=== PATIENT | female | born 1990 | race Caucasian/White ===

== ENCOUNTER 2020-03-31 18:34 | Emergency (ER) | payer SELFPAY ==
[2020-03-31] MEDS ORDERED: HYDROCODONE/APAP 10/325 TAB ONE (19:27)
--- NOTE | 2020-03-31 20:06 | RAD REPORT ---
EXAM DESCRIPTION: CT - CTHCSPWOC - 03/31/2020 7:49 pm CLINICAL HISTORY: Trauma, head and neck injury. PAIN COMPARISON: No comparisons TECHNIQUE: Axial 5 mm thick images of the head were obtained. Axial 2 mm thick images of the cervical spine were obtained with sagittal and coronal reconstruction images generated and reviewed. All CT scans are performed using dose optimization technique as appropriate and may include automated exposure control or mA/KV adjustment according to patient size. FINDINGS: CT HEAD WITHOUT CONTRAST: No acute hemorrhage, hydrocephalus or extra-axial collection is identified.No areas of brain edema or midline shift. The paranasal sinuses and mastoids are clear.The calvarium is intact. CT CERVICAL SPINE WITHOUT CONTRAST: No fracture or subluxation.No prevertebral soft tissues swelling is identified. IMPRESSION: No acute intracranial or cervical spine findings.
--- NOTE | 2020-03-31 20:22 | RAD REPORT ---
EXAM DESCRIPTION: RAD - Lumbar Spine 3 Views - 03/31/2020 8:03 pm CLINICAL HISTORY: PAIN Radiculopathy COMPARISON: No comparisons FINDINGS: Vertebral body heights appear maintained. No compression fracture noted. Disc spaces are m aintained. No spondylolysis or spondylolisthesis. IMPRESSION: Negative study.
[2020-03-31] MEDS ORDERED: DIAZEPAM 5 MG TABLET ONE (20:34)
--- NOTE | 2020-03-31 20:55 | EDPHYS ---
Physician Documentation [facility] Name: Cele Hastings Age: 29 yrs Sex: Female : 1990 Arrival Date: 03/31/2020 Time: 18:40 Bed 8 Private MD: ED Physician Nayan Moralez HPI: 03/31 19:06 This 29 yrs old Female presents to ER via EMS with complaints of Fall Injury. jmm 19:06 Details of fall: The patient fell from a height. Onset: The symptoms/episode jmm began/occurred acutely, just prior to arrival. Associated injuries: The patient sustained injury to the head, neck injury, injury to the low back. This is a 29 year old female with no chronic medical conditions that presents to the ED with lower back pain, neck pain after falling off her counter top and hitting the edge of a bathtub. Denies LOC. 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 - Social history:: Smoking status: Patient reports the use of cigarette tobacco products, smokes one-half pack cigarettes per day. ROS: 19:06 Constitutional: Negative for fever, chills, and weight loss, Cardiovascular: Negative jmm for chest pain, palpitations, and edema, Respiratory: Negative for shortness of breath, cough, wheezing, and pleuritic chest pain. 19:06 Back: Positive for pain with movement. 19:06 Neuro: Positive for headache. 19:06 All other systems are negative. Exam: 19:06 Constitutional: This is a well developed, well nourished patient who is awake, alert, jmm and in no acute distress. Head/Face: atraumatic. Eyes: EOMI, no conjunctival erythema appreciated ENT: Moist Mucus Membranes 19:06 Chest/axilla: Normal chest wall appearance and motion. Cardiovascular: Regular rate and rhythm. 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 19:06 Back: pain, that is mild, of the lumbar area. Vital Signs: 18:49 BP 123 / 78; Pulse 72; Resp 18; Temp 97.8; Pulse Ox 100% on R/A; Weight 83.91 kg; ph Height 5 ft. 1 in. (154.94 cm); Pain 7/10; 19:16 BP 115 / 80; Resp 18; Pulse Ox 100% on R/A; mg2 20:30 BP 120 / 80; Pulse 80; Resp 18; Temp 98; Pulse Ox 100% on R/A; mg2 18:49 Body Mass Index 34.96 (83.91 kg, 154.94 cm) ph [place] Coma Score: 18:49 Eye Response: spontaneous(4). Verbal Response: oriented(5). Motor Response: obeys ph commands(6). Total: 15. 20:30 Eye Response: spontaneous(4). Verbal Response: oriented(5). Motor Response: obeys mg2 commands(6). Total: 15. Trauma Score (Adult): 18:49 Eye Response: spontaneous(1); Verbal Response: oriented(1); Motor Response: obeys ph commands(2); Systolic BP: > 89 mm Hg(4); Respiratory Rate: 10 to 29 per min(4); [place] Score: 15; Trauma Score: 12 20:30 Eye Response: spontaneous(1); Verbal Response: oriented(1); Motor Response: obeys mg2 commands(2); Systolic BP: > 89 mm Hg(4); Respiratory Rate: 10 to 29 per min(4); [place] Score: 15; Trauma Score: 12 MDM: 18:52 Patient medically screened. pernell 20:26 Data reviewed: vital signs, nurses notes. Counseling: I had a detailed discussion with pernell the patient and/or guardian regarding: the historical points, exam findings, and any diagnostic results supporting the discharge/admit diagnosis, radiology results, the need for outpatient follow up, to return to the emergency department if symptoms worsen or persist or if there are any questions or concerns that arise at home. ED course: Patient is alert and non toxic in appearance in the ED. Imaging studies are negative. Patient is advised to follow up with pcp and otherwise given strict return precautions. Patient understood and agrees with the plan of care. . 03/31 19:02 Order name: CT Head C Spine; Complete Time: 20:10 jm 03/31 19:02 Order name: Lumbar Spine (3 Views) XRAY; Complete Time: 20:25 jm 03/31 20:33 Order name: Misc. Order: ambulate; Complete Time: 20:44 jm Administered Medications: 19:15 Drug: [place] 10 mg-325 mg 1 tabs Route: PO; mg2 20:30 Follow up: Response: No adverse reaction; RASS: Alert and Calm (0) mg2 20:21 Drug: Valium 5 mg Route: PO; mg2 21:10 Follow up: Response: No adverse reaction mg2 21:04 Drug: morphine 4 mg Route: IM; Site: right ventrogluteal; mg2 21:18 Follow up: Response: No adverse reaction; Medication administered at discharge. mg2 21:04 Drug: Decadron 10 mg Route: IM; Site: left ventrogluteal; mg2 21:18 Follow up: Response: No adverse reaction; Medication administered at discharge. mg2 Disposition: 04/01 14:35 Co-signature as Attending Physician, Nayan Moralez MD. rn Disposition: 03/31/20 20:54 Discharged to Home. Impression: Strain of muscle, fascia and tendon of lower back, Superficial injury of head. - Condition is Stable. - Discharge Instructions: Back Pain, Adult, Head Injury, Adult. - Prescriptions for Ultracet 37.5- 325 mg Oral Tablet - take 1 tablet by ORAL route every 6 hours - for up to 5 days; do not exceed 8 tablets per day.; 20 tablet. Zanaflex 4 mg Oral Tablet - take 1 tablet by ORAL route every 8 hours As needed; 20 tablet. - Medication Reconciliation Form, Thank You Letter, Antibiotic Education, Prescription Opioid Use form. - Follow up: Private Physician; When: 2 - 3 days; Reason: Recheck today's complaints, Continuance of care, Re-evaluation by your physician. Signatures: Dispatcher [employer] EDMS Joon Rapp PA PA [facility] Nayan Moralez MD MD rn Hall, Patricia, RN RN [place] RN RN jb4 [place], Mateo, RN RN mg2 Corrections: (The following items were deleted from the chart) 03/31 21:19 20:54 03/31/2020 20:54 Discharged to Home. Impression: Strain of muscle, fascia and jb4 tendon of lower back; Superficial injury of head. Condition is Stable. Forms are Medication Reconciliation Form, Thank You Letter, Antibiotic Education, Prescription Opioid Use. Follow up: Private Physician; When: 2 - 3 days; Reason: Recheck today's complaints, Continuance of care, Re-evaluation by your physician. pernell
--- NOTE | 2020-03-31 20:55 | ER ---
Nurse's Notes [facility] Name: Cele Hastings Age: 29 yrs Sex: Female : 1990 Arrival Date: 03/31/2020 Time: 18:40 Bed 8 Private MD: Diagnosis: Strain of muscle, fascia and tendon of lower back;Superficial injury of head Presentation: 03/31 18:41 Chief complaint: EMS states: Was sitting on bathroom counter "doing her eyebrows", fell ph backwards when someone knocked on the door, hit R hip on bathtub, also hit back of head and has abrasion to L forearm, denies LOC, c/o headache and R hip/low back pain. Care prior to arrival: Cervical collar in place. Mechanism of Injury: Fall bathroom counter. Trauma event details: Injury occurred in the [facility], Injury occurred: at home. Injury occurred: March 31, 2020. 18:41 Acuity: KELLEY 3 ph 18:41 Method Of Arrival: EMS: [facility] ph 18:51 Coronavirus screen: Client denies travel out of the [place] in the last 14 days. At this ph time, the client does not indicate any symptoms associated with coronavirus-19. Ebola Screen: No symptoms or risks identified at this time. Initial Sepsis Screen: Does the patient meet any 2 criteria? No. Patient's initial sepsis screen is negative. Does the patient have a suspected source of infection? No. Patient's initial sepsis screen is negative. Risk Assessment: Do you want to hurt yourself or someone else? Patient reports no desire to harm self or others. Onset of symptoms was March 31, 2020. 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 - Social history:: Smoking status: Patient reports the use of cigarette tobacco products, smokes one-half pack cigarettes per day. Screenin:49 Abuse screen: Denies threats or abuse. Denies injuries from another. Nutritional ph screening: On. Tuberculosis screening: No symptoms or risk factors identified. Fall Risk None identified. Primary Survey: 18:48 NO uncontrolled hemorrhage observed. A: The patient is alert. Airway: patent, No ph supplemental oxygen in use on arrival. Oral cavity: clear, Trachea midline. Breathing/Chest: Respiratory pattern: regular, Respiratory effort: spontaneous, unlabored, Chest inspection: symmetrical rise and fall of the chest. Circulation: Skin color: pink, Skin temperature: warm, dry. Disability Alert. Exposure/Environment: There is no evidence of uncontrolled external bleeding. Obvious injury(ies) are noted at this time: abrasion to L forearm, hematoma to back of head, R low back and hip pain. 21:00 Reassessment Airway Airway Patent Breathing/Chest Respiratory pattern Regular mg2 Respiratory effort Spontaneous Unlabored Circulation Color [place] Disability Alert. Secondary Survey: 18:49 HEENT: Head Other hematoma to back of head. Gastrointestinal: No deficits noted. ph Musculoskeletal: Circulation, motion, and sensation intact. Reports pain in right hip. Assessment: 19:16 General: Appears in no apparent distress. comfortable, Behavior is calm, cooperative. mg2 Pain: Complains of pain in lumbar area and pelvis and right hip. Neuro: Level of Consciousness is awake, alert, obeys commands, Oriented to person, place, time, situation. Cardiovascular: Capillary refill < 3 seconds Patient's skin is warm and dry. Respiratory: Airway is patent Respiratory effort is even, unlabored, Respiratory pattern is regular, symmetrical. GI: No signs and/or symptoms were reported involving the gastrointestinal system. : No signs and/or symptoms were reported regarding the genitourinary system. EENT: No signs and/or symptoms were reported regarding the EENT system. Derm: Skin is intact, is healthy with good turgor, Skin is pink, warm \\T\\ dry. normal. Musculoskeletal: Circulation, motion, and sensation intact. Capillary refill < 3 seconds, Reports pain in lumbar area and pelvis and right hip. 20:47 Reassessment: Patient appears in no apparent distress at this time. Patient and/or mg2 family updated on plan of care and expected duration. Pain level reassessed. Patient is alert, oriented x 3, equal unlabored respirations, skin warm/dry/pink. 21:18 Reassessment: Patient appears in no apparent distress at this time. Patient and/or jb4 family updated on plan of care and expected duration. Pain level reassessed. Patient is alert, oriented x 3, equal unlabored respirations, skin warm/dry/pink. Patient states feeling better. Vital Signs: 18:49 BP 123 / 78; Pulse 72; Resp 18; Temp 97.8; Pulse Ox 100% on R/A; Weight 83.91 kg; ph Height 5 ft. 1 in. (154.94 cm); Pain 7/10; 19:16 BP 115 / 80; Resp 18; Pulse Ox 100% on R/A; mg2 20:30 BP 120 / 80; Pulse 80; Resp 18; Temp 98; Pulse Ox 100% on R/A; mg2 18:49 Body Mass Index 34.96 (83.91 kg, 154.94 cm) ph [place] Coma Score: 18:49 Eye Response: spontaneous(4). Verbal Response: oriented(5). Motor Response: obeys ph commands(6). Total: 15. 20:30 Eye Response: spontaneous(4). Verbal Response: oriented(5). Motor Response: obeys mg2 commands(6). Total: 15. Trauma Score (Adult): 18:49 Eye Response: spontaneous(1); Verbal Response: oriented(1); Motor Response: obeys ph commands(2); Systolic BP: > 89 mm Hg(4); Respiratory Rate: 10 to 29 per min(4); Karen Score: 15; Trauma Score: 12 20:30 Eye Response: spontaneous(1); Verbal Response: oriented(1); Motor Response: obeys mg2 commands(2); Systolic BP: > 89 mm Hg(4); Respiratory Rate: 10 to 29 per min(4); [place] Score: 15; Trauma Score: 12 ED Course: 18:40 Patient arrived in ED. ph 18:46 Joon Rapp PA is PHCP. [facility] 18:46 Nayan Moralez MD is Attending Physician. [facility] 18:47 Triage completed. ph 18:51 Arm band placed on Patient placed in an exam room, on a stretcher. ph 18:52 Patient has correct armband on for positive identification. Placed in gown. Bed in low ph position. Call light in reach. Side rails up X 1. Pulse ox on. NIBP on. 18:52 Patient maintains SpO2 saturation greater than 95% on room air. ph 19:10 Mateo Cooper, RN is Primary Nurse. mg2 19:17 No provider procedures requiring assistance completed. Patient did not have IV access mg2 during this emergency room visit. 19:30 Thermoregulation: warm blanket given to patient. mg2 19:50 CT Head C Spine In Process Unspecified. EDMS 20:03 Lumbar Spine (3 Views) XRAY In Process Unspecified. EDMS Administered Medications: 19:15 Drug: [place] 10 mg-325 mg 1 tabs Route: PO; mg2 20:30 Follow up: Response: No adverse reaction; RASS: Alert and Calm (0) mg2 20:21 Drug: Valium 5 mg Route: PO; mg2 21:10 Follow up: Response: No adverse reaction mg2 21:04 Drug: morphine 4 mg Route: IM; Site: right ventrogluteal; mg2 21:18 Follow up: Response: No adverse reaction; Medication administered at discharge. mg2 21:04 Drug: Decadron 10 mg Route: IM; Site: left ventrogluteal; mg2 21:18 Follow up: Response: No adverse reaction; Medication administered at discharge. mg2 Intake: 21:00 PO: 0ml; Total: 0ml. mg2 Outcome: 20:54 Discharge ordered by . pernell 21:18 Discharged to home ambulatory. jb4 21:18 Condition: stable 21:18 Discharge instructions given to patient, Instructed on discharge instructions, follow up and referral plans. medication usage, Demonstrated understanding of instructions, follow-up care, medications, Prescriptions given X 2. 21:19 Patient left the ED. jb4 21:19 Patient's length of stay was not longer than 2 hours. mg2 Signatures: Dispatcher [employer] EDMS Joon Rapp PA PA jmm Hall, Patricia, RN RN [place], RN RN jb4 Mateo Cooper, RN RN mg2
[2020-03-31] MEDS ORDERED: MORPHINE 4 MG/ML SYR ONE (21:13)
[2020-03-31] MEDS ORDERED: dexAMETHasone 10 MG/ML VIAL ONE (21:13)
== END 2020-03-31 21:19 | disposition home or self-care (01) ==
LOC: ER 18:34
DX: S00.90XA Unspecified superficial injury of unspecified part of head, initial encounter (principal); S39.012A Strain of muscle, fascia and tendon of lower back, initial encounter; W17.89XA Other fall from one level to another, initial encounter; Y93.89 Activity, other specified; Y92.012 Bathroom of single-family (private) house as the place of occurrence of the external cause
CPT/HCPCS: 70450; 72100; 72125; 96372; 99284; J1100